=== PATIENT | female | born 1965 | race Caucasian/White ===

== ENCOUNTER 2018-04-06 11:09 | Inpatient (IN) | payer BC, SELFPAY ==
[~2018-04-06 11:09] MED LIST: ISOVUE-370 76%-LOCM 1 ML ONE
[2018-04-06 12:03] LABS: Bilirubin Negative (Negative); Blood, Urine Negative (Negative); Clarity CLEAR (Clear); Glucose, Urine (Dipstick) Negative (Negative); Leukocyte Negative (Negative); Nitrite Negative (Negative); Protein, Urine (Dipstick) Negative (Neg-Trace); Specific Gravity, Urine 1.008 (1.002-1.036); Urobilinogen 0.2 mg/dL (0.2-1.0)
[2018-04-06 12:25] LABS: ALT (SGPT) 20 U/L (8-55); AST (SGOT) 47 U/L (5-34); Alkaline Phosphatase 84 U/L (40-150); Anion Gap 18 mmol/L (10-20); BUN (Urea Nitrogen) 12 mg/dL (9.8-20.1); Bilirubin, Total 1.2 mg/dL (0.2-1.2); Calc. Creatinine Clearance 0 mL/min (70-130); Calcium 9.7 mg/dL (7.8-10.44); Carbon Dioxide 21 mmol/L (22-29); Chloride 100 mmol/L (98-107); Estimated GFR-MDRD 89; Globulin 3.9 g/dL (2.4-3.5); Glucose 87 mg/dL (70-105); Potassium 4.2 mmol/L (3.5-5.1); Protein, Total 7.9 g/dL (6.0-8.3); Sodium 135 mmol/L (136-145)
[2018-04-06 13:07] LABS: Hemoglobin 12.9 g/dL (12.0-16.0); Mean Corpuscular HGB CONC 34.1 g/dL (32.0-36.0); Mean Corpuscular Hemoglobin 28.7 pg (27.0-31.0); Mean Corpuscular Volume 84.3 fL (78.0-98.0); Mean Platelet Volume 6.2 fL (7.4-10.4); Platelet Count 209 thou/uL (130-400); White Blood Cell (WBC) Count 8.7 thou/uL (4.8-10.8)
[2018-04-06 13:08] LABS: Band 36 % (5-11); Lymphocytes 12 % (21-51); MDiff Complete? YES; Metamyelocyte 5 % (0-0); Neutrophil 47 % (42-75); Platelet Morphology Comment Appears Adequate; RBC Morphology Normal
[2018-04-06] MEDS ORDERED: Ketorolac Tromethamine 30 MG/ML VIAL ONE (13:31)
[2018-04-06] MEDS ORDERED: Ondansetron PF 4 MG/2 ML Vial ONE (13:31)
[2018-04-06] MEDS ORDERED: Piperacillin/Tazobactam 4.5 GM VIAL ONE (13:31)
[2018-04-06] MEDS ORDERED: metroNIDAZOLE 500 MG/100 ML BAG ONE (13:33)
--- NOTE | 2018-04-06 13:37 | RAD ---
RADIOGRAPH CHEST 1 VIEW: HISTORY: A 53-year-old female with sepsis. FINDINGS: There are no air space densities, pulmonary edema, pneumothorax, or cardiomegaly. The lateral costop hrenic angles are sharp. The right hemidiaphragm is elevated, unchanged compared to chest CT of 06/14. IMPRESSION: 1. No acute cardiopulmonary findings. 2. Chronically elevated right hemidiaphragm. lisbeth [] POS: JANET
--- NOTE | 2018-04-06 13:41 | CT ---
CT ABDOMEN WITH CONTRAST CT PELVIS WITH CONTRAST: DATE: 04/06/2018 TIME: 12:30 p.m. HISTORY: A 53-year-old female with right-sided abdominal pain. COMPARISON: Noncontrast CT of 07/07/2010. TECHNIQUE: IV injection of iodinated contrast media: Isovue. Oral contrast media: Administered. FINDINGS: There are multiple mildly enlarged mesenteric lymph nodes scattered throughout the abdominal cavity. Again noted is the very large number of diverticula throughout the ascending, transverse, descending , and sigmoid colon. Previously, there was severe focal thickening of a segment of sigmoid colon, wi th surrounding severe edema, representing severe acute diverticulitis. Currently, in the same region, there is mild focal mural thickening and mild surrounding fat strandin g, representing mild edema. This includes a small, approximately 1.5 cm region of slightly low atten uation in the wall of the proximal sigmoid colon. There is no pericolonic abscess. The appendix, abdominal aorta, bilateral kidneys, adrenals, pancreas, liver, and spleen are normal. No pericholecystic edema. No small bowel dilation. No pneumoperitoneum or ascites. The lung bases are grossly clear. Chronically elevated right hemidiaphragm is again noted. The urinary bladder is nearly empty. IMPRESSION: 1. Evidence for sigmoid colonic diverticulitis in the left lower quadrant. 2. In general, in such cases, colonoscopy is recommended after resolution of the acute phase, to rul e out the possibility of a concomitant colon cancer. 3. Pancolonic diverticulosis. 4. Chronically elevated right hemidiaphragm. 5. Normal appendix. VASYL Van POS: JANET
[2018-04-06 16:38] LABS: Lactic Acid 1.5 mmol/L (0.5-2.2)
[2018-04-06] MEDS ORDERED: HYDROcodone/Acetaminophen 5/325 mg Tablet PO PRN (16:53)
[2018-04-06] MEDS ORDERED: Morphine 2 MG/ML SYRINGE SLOW IVP PRN (16:53)
[2018-04-06] MEDS ORDERED: cefOXitin Sodium 1 GM in Sodium Chloride 0.9% 100 ML IVPB SCH (18:00)
[2018-04-06 18:02] VITALS: BMI 39.0
[2018-04-06] MEDS: cefOXitin Sodium/Dextrose,Iso 1 GM in Premix Bag 50 BAG IVPB SCH ×2 (18:38→22:33)
[2018-04-06] MEDS: Famotidine 20 MG TAB PO SCH (20:36)
[2018-04-06] MEDS: metroNIDAZOLE 500 MG in Premix Bag 1 BAG IVPB SCH (22:33)
--- NOTE | 2018-04-06 22:36 | CON ---
DATE OF CONSULTATION: 04/06/2018 CHIEF COMPLAINT: Abdominal pain. HISTORY OF PRESENT ILLNESS: Ms. Jeff is a 53-year-old woman who 5 days ago started having some mild cramping lower abdominal pain. This pain has been continuous and gradually worsened over the last several days such that it became severe this morning and was associated with nausea and vomiting. She came in to the emergency room and had a CT scan performed that showed evidence of diverticulitis around the sigmoid colon. She was febrile to 102. She has had no diarrhea with this. She has had some intermittent occasional constipation, but her last bowel movement was a small amount this morning. She has had no blood in the stool. She did have diverticulitis back in 2010 that was treated with antibiotics. She has had no repeat episodes of diverticulitis requiring antibiotics since that time. She has had an occasional episode of lower abdominal cramping that usually goes away with a liquid diet. PAST MEDICAL HISTORY: Thyroid cancer status post thyroidectomy. PAST SURGICAL HISTORY: Thyroidectomy and tubal ligation. FAMILY HISTORY: She had an uncle with colon cancer, diagnosed age 55. She had 2 sisters with thymus cancer. SOCIAL HISTORY: No alcohol, tobacco, or drugs. ALLERGIES: NO KNOWN DRUG ALLERGIES. MEDICATIONS: 1. Prior to admission, Levothyroxine. 2. Hydrochlorothiazide. 3. Estrogen. REVIEW OF SYSTEMS: Negative x10 systems reviewed except as stated in history of present illness. PHYSICAL EXAMINATION: GENERAL: She is in no acute distress. She is alert and oriented x3. HEENT: Her eyes have no scleral icterus. Oropharynx is clear without lesions. No cervical or supraclavicular lymphadenopathy. LUNGS: Clear to auscultation bilaterally. HEART: Regular rate and rhythm without murmur. ABDOMEN: Diffusely tender, but more so in the left lower quadrant. She has slight guarding in the left lower quadrant. Her bowel sounds are present. EXTREMITIES: No lower extremity edema. NEUROLOGIC: Cranial nerves are grossly intact. LABORATORY DATA: White blood cell count 8.7, hemoglobin 12.9, platelets 209, creatinine 0.96, bilirubin 1.2, AST 47, ALT 20, alkaline phosphatase 84, albumin 4.0. CT scan of the abdomen and pelvis shows mild focal mural thickening and surrounding fat stranding in the sigmoid colon at the same segment that she had prior diverticulitis attack by CT back in 2010. IMPRESSION: Recurrent diverticulitis. This is her first recurrence since 2010. She has never had a colonoscopy. No evidence of complications or perforation with this now. However, she does has have nausea and vomiting and would not tolerate oral antibiotics at this point. RECOMMENDATIONS: 1. IV antibiotics. 2. Complete 10-day course of the antibiotics and then she can follow up in GI clinic for colonoscopy in 6 weeks. Job ID: [id number]
[2018-04-07] MEDS: Acetaminophen 325 MG TAB PO PRN ×3 (02:16→15:27)
[2018-04-07] MEDS: Ondansetron ODT 4 MG TAB PO PRN ×2 (02:16→17:56)
[2018-04-07 04:44] LABS: #Lymphocytes 0.5 thou/uL (1.20-3.40); #Monocytes 0.4 thou/uL (0.11-0.59); #Neutrophils 11.1 thou/uL (1.40-6.50); %Basophils 0.3 % (0.0-1.0); %Eosinophils 0.1 % (0.0-10.0); %Lymphocytes 3.9 % (21.0-51.0); %Monocytes 2.9 % (0.0-10.0); %Neutrophils 92.8 % (42.0-75.0); Hemoglobin 11.7 g/dL (12.0-16.0); Mean Corpuscular HGB CONC 33.3 g/dL (32.0-36.0); Mean Corpuscular Hemoglobin 28.2 pg (27.0-31.0); Mean Corpuscular Volume 84.6 fL (78.0-98.0); Mean Platelet Volume 6.1 fL (7.4-10.4); Platelet Count 168 thou/uL (130-400); RBC Distribution Width 12.3 % (11.5-14.5); Red Blood Cell (RBC) Count 4.17 mill/uL (4.20-5.40); White Blood Cell (WBC) Count 11.9 thou/uL (4.8-10.8)
[2018-04-07 05:04] LABS: Anion Gap 13 mmol/L (10-20); BUN (Urea Nitrogen) 14 mg/dL (9.8-20.1); Calc. Creatinine Clearance 170 mL/min (70-130); Calcium 8.6 mg/dL (7.8-10.44); Carbon Dioxide 25 mmol/L (22-29); Chloride 101 mmol/L (98-107); Estimated GFR-MDRD 89; Glucose 110 mg/dL (70-105); Potassium 3.1 mmol/L (3.5-5.1); Sodium 136 mmol/L (136-145)
[2018-04-07] MEDS: metroNIDAZOLE 500 MG in Premix Bag 1 BAG IVPB SCH ×3 (05:07→21:45)
[2018-04-07] MEDS: cefOXitin Sodium/Dextrose,Iso 1 GM in Premix Bag 50 BAG IVPB SCH (06:06)
[2018-04-07] MEDS: Famotidine 20 MG TAB PO SCH ×2 (10:15→22:48)
--- NOTE | 2018-04-07 10:50 | PDOC.PN ---
- Subjective Encounter Start Date: 04/07/18 Encounter Start Time: 10:15 Subjective: abd pain is slightly better -: its in the lower quadrants, mostly LLq -: no nausea, at bedside - Objective Resuscitation Status - Order Detail: 04/06/18 16:54 Resuscitation Status Routine Resuscitation Status: FULL: Full Resuscitation Discussed with: Patient MAR Reviewed: Yes Vital Signs & Weight: Vital Signs (12 hours) Temp Pulse Resp BP Pulse Ox 04/07/18 09:00 98.5 F 83 18 117/68 92 L 04/07/18 08:00 92 L Weight Admit Weight 249 lb 5 oz Weight 249 lb 5 oz Result Diagrams: 04/07/18 04:12 04/07/18 04:12 Phys Exam - Physical Examination HEENT: moist MMs, sclera anicteric Neck: no JVD, supple Respiratory: no wheezing, no rales Cardiovascular: RRR, no significant murmur Gastrointestinal: soft, no distention, positive bowel sounds tenderness LLQ+, no rigidity or guarding Musculoskeletal: no edema, pulses present Neurological: non-focal, moves all 4 limbs Psychiatric: normal affect, A&O x 3 Dx/Plan (1) Acute diverticulitis Code(s): K57.92 - DVTRCLI OF INTEST, PART UNSP, W/O PERF OR ABSCESS W/O BLEED Status: Acute Comment: initial episode in 2010, sigmoid diverticulitis (2) Obesity (BMI 30-39.9) Code(s): E66.9 - OBESITY, UNSPECIFIED Status: Chronic (3) Hypothyroidism Code(s): E03.9 - HYPOTHYROIDISM, UNSPECIFIED Status: Chronic Qualifiers: Hypothyroidism type: acquired Qualified Code(s): E03.9 - Hypothyroidism, unspecified (4) HTN (hypertension) Code(s): I10 - ESSENTIAL (PRIMARY) HYPERTENSION Status: Chronic Qualifiers: Hypertension type: essential hypertension Qualified Code(s): I10 - Essential (primary) hypertension - Plan will start liq diet from today -: is on cefoxitin and flagyl -: tmax of 99, abd pain is slowly getting better -: to amb in hallway as tolerated -: continue levothyroixin as before, morphine prn * . Review of Systems - Medications/Allergies Allergies/Adverse Reactions: Allergies Allergy/AdvReac Type Severity Reaction Status Date / Time No Known Drug Allergies Allergy Verified 04/06/18 17:59 Medications: Current Medications Acetaminophen (Tylenol) 650 mg PO Q4H PRN PRN Reason: Headache/Fever/Mild Pain (1-3) Last Admin: 04/07/18 10:15 Dose: 650 mg Hydrocodone Bitart/Acetaminophen ([place] 5/325) 1 tab PO Q4H PRN PRN Reason: Moderate Pain (4-6) Last Admin: 04/06/18 20:37 Dose: 1 tab Enoxaparin Sodium (Lovenox) 40 mg SC 0900 [facility] Famotidine (Pepcid) 20 mg PO BID [facility] Last Admin: 04/07/18 10:15 Dose: 20 mg Metronidazole 500 mg/ Device 100 mls @ 100 mls/hr IVPB Q8HR [facility] Last Admin: 04/07/18 05:07 Dose: 100 mls Cefoxitin Sodium/Dextrose 1 gm (/ Device) 50 mls @ 100 mls/hr IVPB Q6HR [facility] Last Admin: 04/07/18 06:06 Dose: 50 mls Morphine Sulfate (Morphine) 2 mg SLOW IVP Q4H PRN PRN Reason: Moderate to Severe Pain (6-10) Ondansetron HCl (Zofran Odt) 4 mg PO Q6H PRN PRN Reason: Nausea/Vomiting Last Admin: 04/07/18 02:16 Dose: 4 mg
[2018-04-07] MEDS: Enoxaparin Sodium 40 MG/0.4 ML SYRINGE SC SCH (12:29)
[2018-04-07] MEDS: Cefepime 1 GM in Sodium Chloride 0.9% 100 ML IVPB SCH ×2 (12:29→22:52)
--- NOTE | 2018-04-07 16:30 | HP ---
CHIEF COMPLAINT: Abdominal pain. HISTORY OF PRESENT ILLNESS: This patient is a 53-year-old female, who had a history of diverticulitis in 2010. The patient had confirmation of that on CT scan. She subsequently improved after simply ER visits. She reports that since that time she has had a couple of flares that were similar, but were fairly mild. She put herself on a clear liquid diet and it resolved spontaneously. She reports that she simply does not go to doctors or generally take care of herself because she is busy taking care of others. The patient developed some pain on , 4 days prior to admission. She had pain in the lower abdomen associated with eating initially. She had associated nausea and vomiting and was unable to keep anything significant down. On the day of admission, the patient tried to eat a couple of bites of pancakes and had severe lower abdominal pain, which she describes as someone standing on her guts. She had a small bowel movement, which only helped very slightly. She is unaware of having any fever at home. She has not had any diarrhea associated with this. REVIEW OF SYSTEMS: The patient has noted some mild urinary incontinence today, which is new for her. She also reports that she is generally weak. Otherwise, all systems were reviewed and all pertinent positives and negatives noted in the HPI. PAST MEDICAL HISTORY: Notable for hypothyroidism that she states was a thyroid cancer. She also has what she describes as a benign thymus lesion noted on CT scan previously. PAST SURGICAL HISTORY: Thyroidectomy and bilateral tubal ligation. SOCIAL HISTORY: The patient is . She has three children. She is also raising a grandchild. She has no history of alcohol or tobacco abuse. No drug use. She is a full code, and her would be her surrogate decision maker. FAMILY HISTORY: The patient has 2 sisters who she says of thymus cancer. Her father at 50 of an NE. Her mother is alive and generally well. ALLERGIES: NONE. MEDICATIONS: Levothyroxine 150 mcg p.o. daily. PHYSICAL EXAMINATION: VITAL SIGNS: Temperature 99.1, pulse 95, respirations 18, O2 saturation 93% on room air, and BP 107/69. GENERAL APPEARANCE: Age-appropriate female. She is in no distress. She is awake, alert, oriented, pleasant, and cooperative. HEENT: PERRL. No acute lesions. NECK: Supple and symmetric. No lymphadenopathy, JVD, or carotid bruits. HEART: Regular rate and rhythm without murmurs, gallops, or rubs. LUNGS: Clear to auscultation bilaterally with good chest wall expansion and air exchange. ABDOMEN: Soft and nondistended. She is exquisitely tender in the pelvis and lower abdomen with some voluntary guarding, but no rebound. EXTREMITIES: Warm and dry with no cyanosis, clubbing, or edema. NEUROLOGIC: The patient is intact and moves all extremities spontaneously. LABORATORY DATA: White count 8.7, hemoglobin 12.9, and platelets 209. She has 36% bands. Sodium 135, potassium 4.2, chloride 101, CO2 is 21, BUN 12, creatinine 0.69, lactic acid 3.1, AST is 47, ALT 20, troponin less than 0.01. Albumin is 4.0. Urinalysis negative. Flu screen negative. IMAGING STUDIES: Chest x-ray negative. CT abdomen reveals left sided diverticulitis, pancolonic diverticulosis, chronically elevated right hemidiaphragm. IMPRESSION AND PLAN: 1. Diverticulitis in a patient with pancolonic diverticulosis. This is at least the patient's second bout of diverticulitis. She is having some nausea and therefore needs to be admitted for IV antibiotic therapy at least until this is improving and she can take some p.o. She will likely need to follow up with colonoscopy at some point, especially given her history of thyroid cancer and her sisters history of thymus cancer. The patient will be seen by GI as well. 2. Nausea and vomiting, necessitates the patient being in hospital for IV antibiotics and we will treat symptomatically. 3. Hypothyroidism. Continue with her usual thyroid medication. Job ID: [id number] [facility]
--- NOTE | 2018-04-07 16:49 | PRG ---
DATE OF SERVICE: 04/07/2018 SUBJECTIVE: Ms. Jeff feels much better today. Her pain is improved. She has just taken in some water and ice chips, but did not feel up to and taking other fluids today. OBJECTIVE: VITAL SIGNS: Temperature is 97.7, pulse 73, and blood pressure 120/69. GENERAL: She is in no acute distress. Alert and oriented x3. LUNGS: Clear to auscultation bilaterally. HEART: Regular rate and rhythm without murmur. ABDOMEN: Soft. She has still tenderness in the lower abdomen, but her tenderness is markedly improved. Bowel sounds are present. EXTREMITIES: No lower extremity edema. LABORATORY DATA: Her white blood cell count did increase from 8.7 to 11.9 today. Creatinine 0.69. IMPRESSION: Acute diverticulitis. She grew Pseudomonas in two of her blood culture bottles. Sensitivities are pending. She is currently on cefepime and metronidazole. There are no signs of perforation or abscess by the contrast enhanced CT at the time of admission. RECOMMENDATIONS: 1. Continue antibiotics. 2. Colonoscopy should be performed in six weeks after resolution of the acute diverticulitis. She had never had a prior colonoscopy. Job ID: [id number]
[2018-04-08] MEDS: metroNIDAZOLE 500 MG in Premix Bag 1 BAG IVPB SCH ×3 (06:14→21:02)
[2018-04-08] MEDS: Famotidine 20 MG TAB PO SCH ×2 (08:46→21:00)
[2018-04-08] MEDS: Levothyroxine 150 MCG TAB PO SCH (08:46)
[2018-04-08] MEDS: Enoxaparin Sodium 40 MG/0.4 ML SYRINGE SC SCH (08:47)
[2018-04-08] MEDS: Acetaminophen 325 MG TAB PO PRN (08:48)
--- NOTE | 2018-04-08 11:38 | PDOC.PN ---
- Subjective Encounter Start Date: 04/08/18 Encounter Start Time: 09:15 Subjective: abd pain is better, no nausea -: is tolerating liq diet -: had bm yesterday, is amb in room - Objective Resuscitation Status - Order Detail: 04/06/18 16:54 Resuscitation Status Routine Resuscitation Status: FULL: Full Resuscitation Discussed with: Dale MCPHERSON Reviewed: Yes Vital Signs & Weight: Vital Signs (12 hours) Temp Pulse Resp BP Pulse Ox 04/08/18 08:00 98.2 F 74 16 145/82 H 97 04/08/18 04:00 98.3 F 04/07/18 23:49 98.1 F Weight Admit Weight 249 lb 5 oz Weight 249 lb 5 oz I&O: 04/07/18 04/08/18 04/09/18 06:59 06:59 06:59 Intake Total 800 Balance 800 Result Diagrams: 04/07/18 04:12 04/07/18 04:12 Phys Exam - Physical Examination HEENT: PERRLA, moist MMs Neck: no JVD, supple Respiratory: no wheezing, no rales Cardiovascular: RRR, no significant murmur Gastrointestinal: soft, no distention, positive bowel sounds Musculoskeletal: no edema, pulses present Neurological: non-focal, moves all 4 limbs Psychiatric: normal affect, A&O x 3 Dx/Plan (1) Acute diverticulitis Code(s): K57.92 - DVTRCLI OF INTEST, PART UNSP, W/O PERF OR ABSCESS W/O BLEED Status: Acute Comment: initial episode in 2010, sigmoid diverticulitis (2) Obesity (BMI 30-39.9) Code(s): E66.9 - OBESITY, UNSPECIFIED Status: Chronic (3) Hypothyroidism Code(s): E03.9 - HYPOTHYROIDISM, UNSPECIFIED Status: Chronic Qualifiers: Hypothyroidism type: acquired Qualified Code(s): E03.9 - Hypothyroidism, unspecified (4) HTN (hypertension) Code(s): I10 - ESSENTIAL (PRIMARY) HYPERTENSION Status: Chronic Qualifiers: Hypertension type: essential hypertension Qualified Code(s): I10 - Essential (primary) hypertension (5) Sepsis Code(s): A41.9 - SEPSIS, UNSPECIFIED ORGANISM Status: Acute Qualifiers: Sepsis type: Pseudomonas Qualified Code(s): A41.52 - Sepsis due to Pseudomonas (6) Bacteremia Code(s): R78.81 - BACTEREMIA Status: Acute Comment: pseudomonas - Plan await final cultures -: is on cefepime and flagyl -: adv diet to heart healthy -: to amb in hallway -: likely dc plan in am if cultures are back * . Review of Systems - Medications/Allergies Allergies/Adverse Reactions: Allergies Allergy/AdvReac Type Severity Reaction Status Date / Time No Known Drug Allergies Allergy Verified 04/06/18 17:59 Medications: Current Medications Acetaminophen (Tylenol) 650 mg PO Q4H PRN PRN Reason: Headache/Fever/Mild Pain (1-3) Last Admin: 04/08/18 08:48 Dose: 650 mg Hydrocodone Bitart/Acetaminophen ([place] 5/325) 1 tab PO Q4H PRN PRN Reason: Moderate Pain (4-6) Last Admin: 04/06/18 20:37 Dose: 1 tab Enoxaparin Sodium (Lovenox) 40 mg SC 0900 [facility] Last Admin: 04/08/18 08:47 Dose: Not Given Famotidine (Pepcid) 20 mg PO BID [facility] Last Admin: 04/08/18 08:46 Dose: 20 mg Metronidazole 500 mg/ Device 100 mls @ 100 mls/hr IVPB Q8HR [facility] Last Admin: 04/08/18 06:14 Dose: 100 mls Cefepime HCl 1 gm/ Sodium (Chloride) 100 mls @ 200 mls/hr IVPB 1200,2359 [facility] Last Admin: 04/07/18 22:52 Dose: 100 mls Levothyroxine Sodium (Synthroid) 150 mcg PO DAILY [facility] Last Admin: 04/08/18 08:46 Dose: 150 mcg Morphine Sulfate (Morphine) 2 mg SLOW IVP Q4H PRN PRN Reason: Moderate to Severe Pain (6-10) Ondansetron HCl (Zofran Odt) 4 mg PO Q6H PRN PRN Reason: Nausea/Vomiting Last Admin: 04/07/18 17:56 Dose: 4 mg
[2018-04-08] MEDS: Cefepime 1 GM in Sodium Chloride 0.9% 100 ML IVPB SCH (12:47)
--- NOTE | 2018-04-08 23:29 | PRG ---
DATE OF SERVICE: 04/08/2018 SUBJECTIVE: Her abdominal pain is resolving. She is tolerating diet well. OBJECTIVE: VITAL SIGNS: Temperature 98.5, pulse 70, blood pressure 134/67. GENERAL: She is in no acute distress. She is alert and oriented x3. LUNGS: Clear to auscultation bilaterally. HEART: Regular rate and rhythm without murmur. ABDOMEN: Soft, nontender, nondistended. Bowel sounds are present. EXTREMITIES: No lower extremity edema. LABORATORY DATA: Her blood culture grew Pseudomonas. Sensitivities are pending. IMPRESSION: 1. Acute diverticulitis. She has responded well symptomatically to antibiotics. 2. Pseudomonas bacteremia. RECOMMENDATIONS: 1. Complete a course of antibiotics. Given the Pseudomonas bacteremia, we will defer to Internal Medicine or if necessary Infectious Disease to determine, which antibiotic is optimal and the duration of therapy. 2. She should follow up in GI clinic in 6 weeks for colonoscopy. 3. I will sign off for now. Please call if GI can be of assistance. Job ID: [id number]
[2018-04-09] MEDS: Cefepime 1 GM in Sodium Chloride 0.9% 100 ML IVPB SCH (00:25)
[2018-04-09] MEDS: metroNIDAZOLE 500 MG in Premix Bag 1 BAG IVPB SCH (05:38)
[2018-04-09 08:10] VITALS: BP 131/82; TEMP 97.7
[2018-04-09] MEDS: Famotidine 20 MG TAB PO SCH (09:55)
[2018-04-09] MEDS: Levothyroxine 150 MCG TAB PO SCH (09:55)
--- NOTE | 2018-04-09 13:56 | PDOC.PN ---
- Subjective Encounter Start Date: 04/09/18 Encounter Start Time: 11:00 Subjective: no abd pain, wants to go home -: is tolerating oral solid diet - Objective Resuscitation Status - Order Detail: 04/06/18 16:54 Resuscitation Status Routine Resuscitation Status: FULL: Full Resuscitation Discussed with: Patient [place] Reviewed: Yes Vital Signs & Weight: Vital Signs (12 hours) Temp Pulse Resp BP Pulse Ox 04/09/18 08:00 97.7 F 62 16 131/82 95 Weight Admit Weight 249 lb 5 oz Weight 249 lb 5 oz I&O: 04/08/18 04/09/18 04/10/18 06:59 06:59 06:59 Intake Total 800 1120 480 Balance 800 1120 480 Result Diagrams: 04/07/18 04:12 04/07/18 04:12 Phys Exam - Physical Examination HEENT: PERRLA, moist MMs Neck: no JVD, supple Respiratory: no wheezing, no rales Cardiovascular: RRR, no significant murmur Gastrointestinal: soft, non-tender, no distention, positive bowel sounds Musculoskeletal: no edema, pulses present Neurological: non-focal, moves all 4 limbs Psychiatric: normal affect, A&O x 3 Dx/Plan (1) Acute diverticulitis Code(s): K57.92 - DVTRCLI OF INTEST, PART UNSP, W/O PERF OR ABSCESS W/O BLEED Status: Acute Comment: initial episode in 2010, sigmoid diverticulitis (2) Obesity (BMI 30-39.9) Code(s): E66.9 - OBESITY, UNSPECIFIED Status: Chronic (3) Hypothyroidism Code(s): E03.9 - HYPOTHYROIDISM, UNSPECIFIED Status: Chronic Qualifiers: Hypothyroidism type: acquired Qualified Code(s): E03.9 - Hypothyroidism, unspecified (4) HTN (hypertension) Code(s): I10 - ESSENTIAL (PRIMARY) HYPERTENSION Status: Chronic Qualifiers: Hypertension type: essential hypertension Qualified Code(s): I10 - Essential (primary) hypertension (5) Sepsis Code(s): A41.9 - SEPSIS, UNSPECIFIED ORGANISM Status: Acute Qualifiers: Sepsis type: Pseudomonas Qualified Code(s): A41.52 - Sepsis due to Pseudomonas (6) Bacteremia Code(s): R78.81 - BACTEREMIA Status: Acute Comment: pseudomonas - Plan cultures are sensitive to quinolones (pseudomonas) -: dc pt home on levaquin and flagyl -: to f/u with as adv. * .
--- NOTE | 2018-04-10 20:48 | EKG ---
Test Reason : SEPSIS ALERT Blood Pressure : / mmHG Vent. Rate : 123 BPM Atrial Rate : 123 BPM P-R Int : 000 ms QRS Dur : 082 ms QT Int : 418 ms P-R-T Axes : 000 003 042 degrees QTc Int : 598 ms Sinus tachycardia with short MN No STEMI Abnormal ECG Confirmed by MARY RIOS D.O. ([id number]), supervising film or videotape editor JEANNIE PACHECO ([id number] on 04/10/2018 8:47:57 PM Referred By: Confirmed By:MARY RIOS D.O.
--- NOTE | 2018-04-11 16:06 | DIS ---
DATE OF ADMISSION: 04/06/2018 DATE OF DISCHARGE: 04/09/2018 DISCHARGE DISPOSITION: To home. PRIMARY DISCHARGE DIAGNOSIS: Acute sigmoid diverticulitis, second episode resolving, initial episode was in 2010. SECONDARY DISCHARGE DIAGNOSES: Sepsis, Pseudomonas bacteremia secondary to above, hypertension, and hypothyroidism. PROCEDURES DONE DURING HOSPITALIZATION: Chest x-ray done showed no acute cardiopulmonary abnormality. CT of the abdomen and pelvis done showed evidence of sigmoid colonic diverticulitis. Pancolonic diverticulosis was seen. Normal appendix was seen on the CAT scan. Urine culture was contaminated. Blood cultures grew Pseudomonas aeruginosa in one of two sets, which was sensitive to quinolones. The patient has had pseudoalcaligenes in one of two cultures. Influenza A and B antigens were negative. White count is 11.9, H and H 11 and 35, and platelet count 168 with 92% neutrophils. BUN 14, creatinine 0.6, lactic acid 3.1, and albumin is 4.0. INPATIENT CONSULT: Zhang Bland MD for Gastroenterology. DISCHARGE MEDICATIONS: 1. Levaquin 500 mg p.o. daily for another 10 days. 2. Flagyl 500 mg p.o. 3 times daily for 10 days. 3. Synthroid 150 mcg p.o. daily. 4. Hydrochlorothiazide 25 mg p.o. daily. ALLERGIES: NO KNOWN DRUG ALLERGIES. DISCHARGE PLAN: The patient to follow up with Dr. Zhang Bland, in 2 weeks. She also needs to follow up with her primary care physician in 1 week. BRIEF COURSE DURING HOSPITALIZATION: The patient initially came to ER on the with complaints of abdominal pain. She has had a CAT scan done which showed sigmoid diverticulitis. The patient was initially kept n.p.o. and has had slow weaning into liquid diet and solid food prior to discharge. The patient did not have any features of abscess or phlegmon on the CAT scan. She was evaluated by Dr. Zhang Bland. The patient has had prior episode of sigmoid diverticulitis in 2010. Her blood cultures incidentally grew Pseudomonas aeruginosa in one of two and Pseudomonas pseudoalcaligenes in the other set, both from the left upper extremity, one from left hand and the other one is from left arm. This is sensitive to Levaquin. The patient needs to continue Levaquin and Flagyl for a period of 10 days. Complete updates were given to the patient and her prior to discharge. She needs to follow up with Dr. Zhang Bland for colonoscopy in likely in 4 weeks. Please see a [id number] documentation for the day of discharge on [facility]. Job ID: [id number]
== END 2018-04-09 11:09 | disposition home or self-care (01) | DRG 872 ==
LOC: ERS 11:09 → ONC 17:23
PROVIDERS: ADMIT Internal Medicine; ATTEND Internal Medicine
DX: A41.52 Sepsis due to Pseudomonas (principal); K57.92 Diverticulitis of intestine, part unspecified, without perforation or abscess without bleeding; E03.9 Hypothyroidism, unspecified; E66.9 Obesity, unspecified; I10 Essential (primary) hypertension; Z85.850 Personal history of malignant neoplasm of thyroid; Z90.89 Acquired absence of other organs; Z98.51 Tubal ligation status; Z68.39 Body mass index [BMI] 39.0-39.9, adult
CPT/HCPCS: 36415; 71045; 74177; 80048; 80053; 81003; 83605; 84484; 85025; 87040; 87077; 87086; 87149; 87186; 87804; 93005; 96365; 96367; 96375; J0692; J0694; J0744; J1650; J1885; J2405; J2543; J7050; Q0162

== ENCOUNTER 2019-02-11 08:05 | Inpatient (IN) | payer SELFPAY ==
[2019-02-11 09:05] LABS: #Eosinphils 0.1 thou/uL (0.0-0.7); #Lymphocytes 1.5 thou/uL (1.20-3.40); #Monocytes 0.5 thou/uL (0.11-0.59); #Neutrophils 6.5 thou/uL (1.40-6.50); %Basophils 0.4 % (0.0-1.0); %Eosinophils 1.3 % (0.0-10.0); %Lymphocytes 17.4 % (21.0-51.0); %Monocytes 6.2 % (0.0-10.0); %Neutrophils 74.8 % (42.0-75.0); Hemoglobin 9.5 g/dL (12.0-16.0); Mean Corpuscular HGB CONC 33.6 g/dL (32.0-36.0); Mean Corpuscular Hemoglobin 28.6 pg (27.0-31.0); Mean Corpuscular Volume 85.1 fL (78.0-98.0); Mean Platelet Volume 6.3 fL (7.4-10.4); Platelet Count 257 thou/uL (130-400); RBC Distribution Width 11.4 % (11.5-14.5); Red Blood Cell (RBC) Count 3.34 mill/uL (4.20-5.40); White Blood Cell (WBC) Count 8.7 thou/uL (4.8-10.8)
[2019-02-11] MEDS ORDERED: Pantoprazole 40 MG VIAL ONE (09:09)
[2019-02-11] MEDS ORDERED: Ondansetron PF 4 MG/2 ML Vial ONE (09:09)
[2019-02-11 09:29] LABS: ALT (SGPT) 20 U/L (8-55); AST (SGOT) 11 U/L (5-34); Albumin 3.5 g/dL (3.5-5.0); Alkaline Phosphatase 64 U/L (40-110); Anion Gap 8 mmol/L (10-20); BUN (Urea Nitrogen) 11 mg/dL (9.8-20.1); Bilirubin, Total 0.5 mg/dL (0.2-1.2); Calc. Creatinine Clearance 0 mL/min (70-130); Calcium 8.4 mg/dL (7.8-10.44); Carbon Dioxide 31 mmol/L (22-29); Chloride 104 mmol/L (98-107); Estimated GFR-MDRD Greater than 90; Globulin 2.7 g/dL (2.4-3.5); Glucose 111 mg/dL (70-105); Potassium 3.8 mmol/L (3.5-5.1); Protein, Total 6.2 g/dL (6.0-8.3); Sodium 139 mmol/L (136-145)
[2019-02-11] MEDS ORDERED: Senokot S 8.6-50 MG TAB PO PRN (10:51)
[2019-02-11] MEDS ORDERED: HYDROcodone/Acetaminophen 5/325 mg Tablet PO PRN (10:51)
[2019-02-11] MEDS ORDERED: Ondansetron ODT 4 MG TAB PO PRN (10:51)
[2019-02-11] MEDS ORDERED: Ondansetron PF 4 MG/2 ML Vial IVP PRN (10:51)
[2019-02-11] MEDS ORDERED: HYDROcodone/Acetaminophen 7.5/325 mg Tablet PO PRN (10:51)
[2019-02-11] MEDS ORDERED: Acetaminophen 325 MG TAB PO PRN (10:51)
[2019-02-11] MEDS ORDERED: Labetalol HCl 100 MG/20 ML VIAL SLOW IVP PRN (10:58)
[2019-02-11] MEDS ORDERED: Melatonin 3 MG TAB PO PRN (10:58)
[2019-02-11] MEDS ORDERED: diphenhydrAMINE 25 MG CAP PO PRN (10:58)
[2019-02-11] MEDS ORDERED: Benzonatate 100 MG CAP PO PRN (10:58)
[2019-02-11] MEDS ORDERED: Docusate 100 MG CAP PO PRN (10:58)
--- NOTE | 2019-02-11 11:20 | CT ---
CT OF THE ABDOMEN AND PELVIS WITH IV CONTRAST INDICATION: History of bloody stools and abdominal pain COMPARISON: CT the abdomen and pelvis dated April 06, 2018. FINDINGS: ABDOMEN: Lung bases: Clear Liver: Fatty liver Gallbladder: Normal appearing. Pancreas: Normal. Adrenal glands: Normal. Spleen: Normal. Kidneys and ureters: Normal. No hydronephrosis. Vasculature: Normal. Lymph nodes:No lymphadenopathy. Free fluid in abdomen:No free fluid is evident. PELVIS: Small and large bowel: There is wall thickening with pericolonic inflammatory stranding involving the proximal sigmoid colon as well as the hepatic flexure. There are scattered colonic diverticula. Appendix:Normal Bladder: Normal. Rectal and perirectal soft tissues:Normal. Reproductive structures: Normal. Free fluid in pelvis: No free fluid is evident. Lymphadenopathy pelvis: No lymphadenopathy is evident. Osseous structures: There is stable wedge compression abnormalities of T9 and T8. There is scattered degenerative and osteoarthritic changes. Soft tissues:Normal. IMPRESSION: 1. Noncomplicated sigmoid and hepatic flexure colonic diverticulitis. 2. Fatty liver. 3. Chronic T9 and T8 wedge compression fractures.
[2019-02-11] MEDS ORDERED: metroNIDAZOLE 500 MG/100 ML BAG ONE (11:58)
[2019-02-11] MEDS ORDERED: Iopamidol 370 76% 50 ML VIAL FS ONE (12:07)
[2019-02-11] MEDS ORDERED: Iopamidol 370 76% 100 ML VIAL ONE (12:07)
[2019-02-11] MEDS: metroNIDAZOLE 500 MG in Premix Bag 1 BAG IVPB SCH ×2 (13:04→21:16)
[2019-02-11] MEDS: Sodium Chloride 0.9% 1,000 ML IV SCH (13:07)
[2019-02-11 13:48] VITALS: BMI 37.5
--- NOTE | 2019-02-11 14:14 | CON ---
DATE OF CONSULTATION: 02/11/2019 REASON FOR CONSULT: Diverticulitis and GI bleed. HISTORY OF PRESENT ILLNESS: Ms. Jeff is a 53-year-old female, who has previous history of diverticulitis back in March of this year. She was seeing Dr. Bland at that time and it was her first hospitalization. She had sigmoid colon diverticulitis. She did have a followup colonoscopy after that and she states she was done pretty well. About a week ago, she thought she had a recurrence of her symptoms, she was put on a liquid diet. She had some low-grade temperatures. She seemed to get better, but then on Thursday, 2 days ago, she started having severe cramping with diarrhea and some bleeding that was bright red in nature. On Thursday night, it happened once or twice and yesterday had 4 or 5 times and last night, she went to the bathroom and the next thing she remember she woke up on the floor with EMS there and she had apparently had a syncopal episode. Presently, she is feeling better. She has had a CAT scan in the emergency room that showed some diverticulitis again and in fact, the CAT scan report it was hepatic flexure and sigmoid colon diverticulitis. She denies any fever or chills. She states her pain is mainly in the left lower quadrant. She has had no dysuria, frequency, urgency and she feels a lot better since getting some fluids in the emergency room and starting antibiotics. PAST MEDICAL HISTORY: 1. Diverticulitis, first diagnosed in March 2018. 2. Recent colonoscopy earlier this year with no significant finding except for diverticular disease. 3. History of thyroid cancer, previous thyroidectomy. PAST SURGICAL HISTORY: Thyroidectomy and tubal ligation. FAMILY HISTORY: Uncle with colon cancer at age 55. Two sisters with thymus cancer. SOCIAL HISTORY: No alcohol, drugs, or tobacco. ALLERGIES: NONE KNOWN. MEDICATIONS: Medications at home; 1. Synthroid. 2. . 3. Lisinopril. Medications here, she is on; 1. Levothyroxine 150 mcg daily. 2. Levofloxacin 750 mg daily. 3. Metronidazole q.8 hours. 4. Protonix q.12 hours IV. No IV fluids and she is n.p.o. PHYSICAL EXAMINATION: VITAL SIGNS: Temperature is 97.5, pulse 62, and blood pressure 131/82. GENERAL: She is resting comfortably in bed. HEENT: Her oropharynx is moist. Conjunctivae and sclerae are clear. Mucous membranes are pink. LUNGS: Clear. HEART: Regular rate and rhythm without clicks or murmurs. ABDOMEN: Mildly tender in left lower quadrant with no rebound or guarding. There is no palpable hepatosplenomegaly. There are no hernias. EXTREMITIES: No clubbing, cyanosis, or edema. RECTAL: Deferred. LABORATORY DATA: Hemoglobin is 9.5, it was 11.7 in March 2018; white count is 8.7; and platelet count is 257. Sodium 139, potassium 3.8, BUN and creatinine are 11 and 0.6. Liver function tests are normal. ASSESSMENT: 1. This is a 53-year-old female, who has had a prior history of diverticulitis in March of 2018, who felt she had a relapse of her symptoms last week, which she managed with going to a liquid diet. Ultimately though, the pain got worse again on Thursday and then she passed. She started having tenesmus with bloody stools. She finally came in yesterday. She has no white count and no fever. Has a CAT scan suggestive of thickening in the hepatic flexure of the colon and also in the sigmoid colon. She has been labeled as having diverticulitis. She has been made n.p.o. and she has been placed on no fluids here on the floor. I suspect this is probably more likely ischemic colitis based on the changes in 2 areas of the colon, hepatic flexure, and sigmoid colon, although it could be diverticulitis. 2. Anemia with no signs of overt hemorrhage at this time. RECOMMENDATIONS: I would start her on some IV fluids and put her on clear liquids and continue the antibiotics and observe her. Job ID: [id number]
--- NOTE | 2019-02-11 17:32 | PDOC.HHP ---
Hospitalist HPI - History of Present Illness GI bleeding and abdominal pain History of Present Illness: 53-year-old the female with past medical history of thyroid cancer status post thyroidectomy, hypertension, and diverticulitis flair in the past presents with G.I. bleeding and abdominal cramping. I find the patient on the medical/ surgical unit and she is resting in bed comfortably. Patient breathing well on room air. Patient with her at bedside her primary historian. Patient tells me that over the past several days she has had bright red blood in her stool. Patient has had several episodes of diarrhea all through the night last night and though the past several days. Patient spent most of the night on the commode and this morning at roughly 5 in the morning while she was on the commode straining and bearing down she did suffer a episode where she momentarily passed out. Patient did not have any abrasion or trauma to her body. Patient states that she is not having any headache or pain in the limbs. Patient does not have any tender spots on whole body palpation of the long bones and bony areas. Patient had CT scan of the abdomen that demonstrates acute diverticulitis. Gastroenterology consultation requested for further recommendations. Hospitalist ROS - Review of Systems All other systems reviewed; all pertinent +/- noted in HPI/Subj - Medication Medications: Active Medications Generic Name Dose Route Start Last Admin Trade Name Freq PRN Reason Stop Dose Admin Metronidazole 500 mg/ Device 100 mls @ 100 mls/hr 02/11/19 14:00 02/11/19 13: 04 IVPB Not Given Q8HR LILI Levofloxacin 750 mg/ Device 150 mls @ 100 mls/hr 02/11/19 12:00 02/11/19 13: 07 IVPB 150 mls 1200 LILI Administration Sodium Chloride 1,000 mls @ 100 mls/hr 02/11/19 13:00 02/11/19 13:07 Normal Saline 0.9% IV 1,000 mls .Q10H LILI Administration Hospitalist History - Past Medical History Source: patient, family Cardiac: reports: HTN Pulmonary: reports: no pertinent history [employer]IV[employer]: reports: no pertinent history Gastrointestinal: reports: Diverticulosis, GI bleed Heme/Onc: reports: no pertinent history Hepatobiliary: reports: no pertinent history Psych: reports: no pertinent history Musculoskeletal: reports: no pertinent history Rheumatologic: reports: no pertinent history Infectious Disease: reports: no pertinent history ENT: reports: no pertinent history Renal/: reports: no pertinent history Endocrine: reports: Hypothyroidism, Other (Thyroid CA s/p thyroidectomy) - Past Surgical History Past Surgical History: reports: Tubal Ligation, Other (Thyroidectomy) - Family History Family History: reports: hypertension - Social History Smoking Status: Never smoker Alcohol: reports: None Drugs: reports: none Living Situation: With Family Domestic Violence: Negative Activity level: independent ambulation - Exam General Appearance: NAD, awake alert Eye: PERRL, anicteric sclera ENT: normocephalic atraumatic, no oropharyngeal lesions, moist mucosa Neck: supple, symmetric, no JVD, no lymphadenopathy Heart: RRR, no murmur, no gallops, no rubs, normal peripheral pulses Respiratory: CTAB, no wheezes, no rales, no ronchi Gastrointestinal: soft, non-distended, no guarding, no rigidity, tender to palpation (Mild left lower quadrant). negative: non-tender Extremities: no edema Skin: no lesions, no rashes Neurological: cranial nerve grossly intact, normal sensation to touch, no weakness, no focal deficits Musculoskeletal: normal tone, normal strength, no muscle wasting Psychiatric: normal affect, normal behavior, A&O x 3 Hospitalist Results - Labs Result Diagrams: 02/11/19 08:46 02/11/19 08:46 Lab results: WBC 8.7 thou/uL (4.8-10.8) 02/11/19 08:46 Hgb 9.5 g/dL (12.0-16.0) L 02/11/19 08:46 Hct 28.4 % (36.0-47.0) L 02/11/19 08:46 MCV 85.1 fL (78.0-98.0) 02/11/19 08:46 Plt Count 257 thou/uL (130-400) 02/11/19 08:46 Neutrophils % 74.8 % (42.0-75.0) 02/11/19 08:46 Sodium 139 mmol/L (136-145) 02/11/19 08:46 Potassium 3.8 mmol/L (3.5-5.1) 02/11/19 08:46 Chloride 104 mmol/L (98-107) 02/11/19 08:46 Carbon Dioxide 31 mmol/L (22-29) H 02/11/19 08:46 BUN 11 mg/dL (9.8-20.1) 02/11/19 08:46 Creatinine 0.60 mg/dL (0.6-1.1) 02/11/19 08:46 Glucose 111 mg/dL (70-105) H 02/11/19 08:46 Calcium 8.4 mg/dL (7.8-10.44) 02/11/19 08:46 Total Bilirubin 0.5 mg/dL (0.2-1.2) 02/11/19 08:46 AST 11 U/L (5-34) 02/11/19 08:46 ALT 20 U/L (8-55) 02/11/19 08:46 Alkaline Phosphatase 64 U/L (40-110) 02/11/19 08:46 Serum Total Protein 6.2 g/dL (6.0-8.3) 02/11/19 08:46 Albumin 3.5 g/dL (3.5-5.0) 02/11/19 08:46 - Radiology Interpretation CT scan - abdomen Status: image reviewed by nh Hospitalist H&P A/P - Problem (1) Abdominal pain Code(s): R10.9 - UNSPECIFIED ABDOMINAL PAIN Status: Acute (2) GI bleeding Code(s): K92.2 - GASTROINTESTINAL HEMORRHAGE, UNSPECIFIED Status: Acute (3) Anemia Code(s): D64.9 - ANEMIA, UNSPECIFIED Status: Acute (4) Acute diverticulitis Code(s): K57.92 - DVTRCLI OF INTEST, PART UNSP, W/O PERF OR ABSCESS W/O BLEED Status: Acute (5) Diverticulitis Code(s): K57.92 - DVTRCLI OF INTEST, PART UNSP, W/O PERF OR ABSCESS W/O BLEED Status: Acute (6) HTN (hypertension) Code(s): I10 - ESSENTIAL (PRIMARY) HYPERTENSION Status: Chronic Qualifiers: Hypertension type: essential hypertension Qualified Code(s): I10 - Essential (primary) hypertension (7) Hypothyroidism Code(s): E03.9 - HYPOTHYROIDISM, UNSPECIFIED Status: Chronic Qualifiers: Hypothyroidism type: acquired Qualified Code(s): E03.9 - Hypothyroidism, unspecified (8) Obesity (BMI 30-39.9) Code(s): E66.9 - OBESITY, UNSPECIFIED Status: Chronic - Plan Plan: Plan: admit to medical/surgical unit gastroenterology consultation, recommendations appreciated G.I. specific antibiotics IV IV fluids PPI therapy hold antiplatelet, anticoagulation, nonsteroidal anti-inflammatories drugs in the setting of acute G.I. bleeding CT scan of the abdomen with acute diverticulitis without signs of focal perforation or abscess symptomatic therapy for abdominal pain continue home medications is able blood pressure control blood sugar control DVT prophylaxis - SCDs
[2019-02-11] MEDS: Pantoprazole 40 MG VIAL IVP SCH (21:16)
[2019-02-12] MEDS: Sodium Chloride 0.9% 1,000 ML IV SCH ×4 (00:36→20:28)
[2019-02-12] MEDS: metroNIDAZOLE 500 MG in Premix Bag 1 BAG IVPB SCH ×3 (05:06→21:19)
[2019-02-12] MEDS: Levothyroxine 150 MCG TAB PO SCH (05:08)
[2019-02-12 06:48] LABS: #Eosinphils 0.1 thou/uL (0.0-0.7); #Lymphocytes 2.2 thou/uL (1.20-3.40); #Monocytes 0.4 thou/uL (0.11-0.59); #Neutrophils 4.4 thou/uL (1.40-6.50); %Basophils 0.5 % (0.0-1.0); %Eosinophils 1.6 % (0.0-10.0); %Lymphocytes 30.7 % (21.0-51.0); %Monocytes 5.7 % (0.0-10.0); %Neutrophils 61.6 % (42.0-75.0); Hemoglobin 8.3 g/dL (12.0-16.0); Mean Corpuscular HGB CONC 33.8 g/dL (32.0-36.0); Mean Corpuscular Volume 85.8 fL (78.0-98.0); Mean Platelet Volume 5.8 fL (7.4-10.4); Platelet Count 252 thou/uL (130-400); RBC Distribution Width 11.4 % (11.5-14.5); Red Blood Cell (RBC) Count 2.84 mill/uL (4.20-5.40); White Blood Cell (WBC) Count 7.2 thou/uL (4.8-10.8)
[2019-02-12 07:05] LABS: Anion Gap 9 mmol/L (10-20); BUN (Urea Nitrogen) 6 mg/dL (9.8-20.1); Calc. Creatinine Clearance 198 mL/min (70-130); Calcium 8.1 mg/dL (7.8-10.44); Carbon Dioxide 29 mmol/L (22-29); Chloride 107 mmol/L (98-107); Estimated GFR-MDRD Greater than 90; Glucose 98 mg/dL (70-105); Potassium 3.6 mmol/L (3.5-5.1); Sodium 141 mmol/L (136-145)
[2019-02-12] MEDS: Hydrochlorothiazide 25 MG TAB PO SCH (08:50)
--- NOTE | 2019-02-12 10:51 | PDOC.HOSPP ---
- Subjective Subjective: Seen and examined. Patient states that she has not moved her bowels sense arrival to the hospital. No further syncopal episodes. Blood counts have down trended with hemodialysis and from IV fluids. No nausea or vomiting. Crampy abdominal pain is improved. All questions answered in detail. - Objective Vital Signs & Weight: Vital Signs (12 hours) Temp Pulse Resp BP BP Pulse Ox 02/12/19 08:00 97.9 F 69 20 124/84 95 02/12/19 07:19 94 L 02/12/19 03:51 98.4 F 88 18 104/71 94 L 02/12/19 00:00 97.8 F 81 18 111/74 94 L Weight Weight 239 lb 6.56 oz I&O: 02/11/19 02/12/19 02/13/19 06:59 06:59 06:59 Intake Total 2250 Balance 2250 Result Diagrams: 02/12/19 06:34 02/12/19 06:34 Radiology Reviewed by me: Yes Hospitalist ROS - Review of Systems All other systems reviewed; all pertinent +/- noted in HPI/Subj - Medication Medications: Active Medications Generic Name Dose Route Start Last Admin Trade Name Freq PRN Reason Stop Dose Admin Hydrochlorothiazide 25 mg 02/12/19 09:00 02/12/19 08:50 Hydrochlorothiazide PO Not Given DAILY LILI Metronidazole 500 mg/ Device 100 mls @ 100 mls/hr 02/11/19 14:00 02/12/19 05: 06 IVPB 100 mls Q8HR LILI Administration Levofloxacin 750 mg/ Device 150 mls @ 100 mls/hr 02/11/19 12:00 02/11/19 13: 07 IVPB 150 mls 1200 LILI Administration Sodium Chloride 1,000 mls @ 100 mls/hr 02/11/19 13:00 02/12/19 00:38 Normal Saline 0.9% IV 1,000 mls .Q10H LILI Administration Levothyroxine Sodium 150 mcg 02/12/19 06:00 02/12/19 05:08 Synthroid PO Not Given 0600 LILI Pantoprazole Sodium 40 mg 02/11/19 21:00 02/11/19 21:16 Protonix IVP 40 mg Q12HR LILI Administration - Exam General Appearance: NAD, awake alert Eye: PERRL ENT: normocephalic atraumatic, moist mucosa Neck: supple, symmetric, no lymphadenopathy Heart: RRR, no murmur, no gallops, no rubs Respiratory: CTAB, no wheezes, no rales, no ronchi, normal chest expansion Gastrointestinal: soft, non-distended, no palpable masses, no guarding, no rigidity, tender to palpation (deep palpation left lower quadrant) Extremities: no edema Skin: no lesions, no rashes Neurological: cranial nerve grossly intact, no weakness, no focal deficits Musculoskeletal: normal strength Psychiatric: normal behavior, A&O x 3 Hosp A/P (1) Abdominal pain Code(s): R10.9 - UNSPECIFIED ABDOMINAL PAIN Status: Acute (2) GI bleeding Code(s): K92.2 - GASTROINTESTINAL HEMORRHAGE, UNSPECIFIED Status: Acute (3) Anemia Code(s): D64.9 - ANEMIA, UNSPECIFIED Status: Acute (4) Acute diverticulitis Code(s): K57.92 - DVTRCLI OF INTEST, PART UNSP, W/O PERF OR ABSCESS W/O BLEED Status: Acute (5) Diverticulitis Code(s): K57.92 - DVTRCLI OF INTEST, PART UNSP, W/O PERF OR ABSCESS W/O BLEED Status: Acute (6) HTN (hypertension) Code(s): I10 - ESSENTIAL (PRIMARY) HYPERTENSION Status: Chronic Qualifiers: Hypertension type: essential hypertension Qualified Code(s): I10 - Essential (primary) hypertension (7) Hypothyroidism Code(s): E03.9 - HYPOTHYROIDISM, UNSPECIFIED Status: Chronic Qualifiers: Hypothyroidism type: acquired Qualified Code(s): E03.9 - Hypothyroidism, unspecified (8) Obesity (BMI 30-39.9) Code(s): E66.9 - OBESITY, UNSPECIFIED Status: Chronic - Plan Plan: medical/surgical unit gastroenterology consultation, recommendations appreciated G.I. specific antibiotics IV fluids Clear liquid diet, advance as brett per GI PPI therapy hold antiplatelet therapy/and coagulation/NSAIDs in the setting of G.I. bleeding CT scan of the abdomen consistent with acute diverticulitis, without signs of focal perforation or abscess symptomatic therapy for abdominal pain continue home medications as able blood pressure control blood sugar control DVT prophylaxis SCDs
[2019-02-12] MEDS: Pantoprazole 40 MG VIAL IVP SCH ×2 (11:00→20:27)
[2019-02-13] MEDS: Sodium Chloride 0.9% 1,000 ML IV SCH ×2 (04:59→15:53)
[2019-02-13] MEDS: metroNIDAZOLE 500 MG in Premix Bag 1 BAG IVPB SCH ×3 (05:00→21:14)
[2019-02-13] MEDS: Levothyroxine 150 MCG TAB PO SCH (05:02)
[2019-02-13] MEDS: Hydrochlorothiazide 25 MG TAB PO SCH (08:50)
[2019-02-13] MEDS: Pantoprazole 40 MG VIAL IVP SCH ×2 (08:53→21:14)
[2019-02-13 10:08] LABS: #Basophils 0.1 thou/uL (0.0-0.2); #Eosinphils 0.2 thou/uL (0.0-0.7); #Lymphocytes 1.8 thou/uL (1.20-3.40); #Monocytes 0.5 thou/uL (0.11-0.59); #Neutrophils 4.9 thou/uL (1.40-6.50); %Basophils 0.7 % (0.0-1.0); %Eosinophils 2.3 % (0.0-10.0); %Lymphocytes 24.2 % (21.0-51.0); %Monocytes 6.2 % (0.0-10.0); %Neutrophils 66.5 % (42.0-75.0); Hemoglobin 8.2 g/dL (12.0-16.0); Mean Corpuscular HGB CONC 33.5 g/dL (32.0-36.0); Mean Corpuscular Hemoglobin 28.6 pg (27.0-31.0); Mean Corpuscular Volume 85.5 fL (78.0-98.0); Mean Platelet Volume 6.1 fL (7.4-10.4); Platelet Count 294 thou/uL (130-400); RBC Distribution Width 11.3 % (11.5-14.5); Red Blood Cell (RBC) Count 2.87 mill/uL (4.20-5.40); White Blood Cell (WBC) Count 7.3 thou/uL (4.8-10.8)
--- NOTE | 2019-02-13 10:46 | PDOC.HOSPP ---
- Subjective Subjective: Seen and examined. Tolerating diet. Patient has moved her bowels three times since I saw her last, all three have been blood he stool. Patient with headache , has not tried anything to alleviate it, recommended Tylenol or other symptomatic medications as needed. Patient with crampy abdominal pain that has been improving on antibiotics. All questions answered in detail. Patient and family are happy with plan of care. - Objective Vital Signs & Weight: Vital Signs (12 hours) Temp Pulse Resp BP Pulse Ox 02/13/19 08:30 94 L 02/13/19 08:00 98.3 F 77 14 122/77 94 L Weight Admit Weight 239 lb Weight 239 lb 6.56 oz I&O: 02/12/19 02/13/19 02/14/19 06:59 06:59 06:59 Intake Total 2250 3050 Balance 2250 3050 Result Diagrams: 02/13/19 09:42 02/12/19 06:34 Radiology Reviewed by me: Yes Hospitalist ROS - Review of Systems All other systems reviewed; all pertinent +/- noted in HPI/Subj - Medication Medications: Active Medications Generic Name Dose Route Start Last Admin Trade Name Freq PRN Reason Stop Dose Admin Hydrochlorothiazide 25 mg 02/12/19 09:00 02/13/19 08:50 Hydrochlorothiazide PO Not Given DAILY LILI Metronidazole 500 mg/ Device 100 mls @ 100 mls/hr 02/11/19 14:00 02/13/19 05: 00 IVPB 100 mls Q8HR LILI Administration Levofloxacin 750 mg/ Device 150 mls @ 100 mls/hr 02/11/19 12:00 02/12/19 12: 47 IVPB 150 mls 1200 LILI Administration Sodium Chloride 1,000 mls @ 100 mls/hr 02/11/19 13:00 02/13/19 04:59 Normal Saline 0.9% IV Not Given .Q10H LILI Levothyroxine Sodium 150 mcg 02/12/19 06:00 02/13/19 05:02 Synthroid PO 150 mcg 0600 LILI Administration Pantoprazole Sodium 40 mg 02/11/19 21:00 02/13/19 08:53 Protonix IVP 40 mg Q12HR LILI Administration - Exam General Appearance: NAD, awake alert Eye: PERRL ENT: normocephalic atraumatic, moist mucosa Neck: supple, symmetric, no lymphadenopathy Heart: RRR, no murmur, no gallops, no rubs Respiratory: CTAB, no wheezes, no rales, no ronchi, normal chest expansion Gastrointestinal: soft, non-distended, normal bowel sounds, no guarding, no rigidity, tender to palpation (deep palpation in lower left quadrant - mild) Extremities: no edema Skin: no lesions, no rashes Neurological: cranial nerve grossly intact, no weakness Musculoskeletal: normal strength, no muscle wasting Psychiatric: normal affect, A&O x 3 Hosp A/P (1) Abdominal pain Code(s): R10.9 - UNSPECIFIED ABDOMINAL PAIN Status: Acute (2) GI bleeding Code(s): K92.2 - GASTROINTESTINAL HEMORRHAGE, UNSPECIFIED Status: Acute (3) Anemia Code(s): D64.9 - ANEMIA, UNSPECIFIED Status: Acute (4) Acute diverticulitis Code(s): K57.92 - DVTRCLI OF INTEST, PART UNSP, W/O PERF OR ABSCESS W/O BLEED Status: Acute (5) Diverticulitis Code(s): K57.92 - DVTRCLI OF INTEST, PART UNSP, W/O PERF OR ABSCESS W/O BLEED Status: Acute (6) HTN (hypertension) Code(s): I10 - ESSENTIAL (PRIMARY) HYPERTENSION Status: Chronic Qualifiers: Hypertension type: essential hypertension Qualified Code(s): I10 - Essential (primary) hypertension (7) Hypothyroidism Code(s): E03.9 - HYPOTHYROIDISM, UNSPECIFIED Status: Chronic Qualifiers: Hypothyroidism type: acquired Qualified Code(s): E03.9 - Hypothyroidism, unspecified (8) Obesity (BMI 30-39.9) Code(s): E66.9 - OBESITY, UNSPECIFIED Status: Chronic - Plan Plan: medical/surgical unit gastroenterology consultation, recommendations appreciated G.I. specific antibiotics, transition to oral on D/c IV fluids Full liquid diet, advance as brett per GI PPI therapy hold antiplatelet therapy/and coagulation/NSAIDs in the setting of G.I. bleeding CT scan of the abdomen consistent with acute diverticulitis, without signs of focal perforation or abscess symptomatic therapy for abdominal pain continue home medications as able blood pressure control blood sugar control DVT prophylaxis - SCDs
--- NOTE | 2019-02-13 13:15 | PRG ---
DATE OF SERVICE: 02/13/2019 SUBJECTIVE: Ms. Jeff feels better. Her pain is improved. She is having no fever. She did have a little blood that she passed today, but not as much as she had been passing in the past. OBJECTIVE: VITAL SIGNS: Temperature is 98, pulse 77, and blood pressure 122/76. ABDOMEN: Mildly tender in left upper quadrant. LABORATORY DATA: White count 7.3, hemoglobin 8.2, and platelet count 294. ASSESSMENT: Diverticulitis versus ischemic colitis. She has had an episode of diverticulitis last year and had a colonoscopy earlier this year that was okay. PLAN: Advance diet to bland soft. If the patient continues to improve tomorrow, she should go home. Job ID: [id number]
[2019-02-14] MEDS: Sodium Chloride 0.9% 1,000 ML IV SCH (02:03)
[2019-02-14] MEDS: Levothyroxine 150 MCG TAB PO SCH (05:21)
[2019-02-14] MEDS: metroNIDAZOLE 500 MG in Premix Bag 1 BAG IVPB SCH ×2 (05:21→14:04)
[2019-02-14 06:10] LABS: Hemoglobin 7.6 g/dL (12.0-16.0); Platelet Count 277 thou/uL (130-400)
[2019-02-14] MEDS: Hydrochlorothiazide 25 MG TAB PO SCH (08:43)
[2019-02-14] MEDS: Pantoprazole 40 MG VIAL IVP SCH (08:44)
[2019-02-14 16:05] VITALS: BP 125/83; TEMP 98.3
--- NOTE | 2019-02-15 06:32 | DIS ---
DATE OF ADMISSION: 02/11/2019 DATE OF DISCHARGE: 02/14/2019 DISCHARGE DIAGNOSES: 1. Colitis, likely ischemic in nature, cannot rule out diverticulitis. 2. Abdominal pain. 3. Gastrointestinal bleeding. 4. Acute blood loss anemia. 5. Hypertension. 6. Hypothyroidism. 7. Obesity. 8. ZHANG 9. Chronic T8 and T9 compression fractures. HISTORY OF PRESENT ILLNESS: This patient is a 53-year-old female who presented to the hospital through the emergency department with abdominal pain and melena. She had a CT scan of the abdomen which showed a noncomplicated sigmoid and hepatic flexure colon, diverticulitis with some fatty liver and chronic T8 and T9 wedge compression fractures. She was admitted to the hospital and started on IV antibiotics for diverticulitis and she was seen in consultation by Dr. Mobley of the GI service, who felt the patient more likely had an ischemic colitis based on the areas involved in the appearance of the CT scan. The patient was noted to have some anemia associated with the blood loss, but her bleeding appeared to have fully stopped by the time of the admission. She was maintained on treatment for the following couple of days and seen in followup by Dr. Mobley who felt the patient could safely be discharged given that her symptoms had improved and she had no further signs of bleeding. On the day of discharge, her hemoglobin had come down as low as 7.6. She had no bowel movement at all on that particular day. She had orthostatic vital signs which revealed essentially no change with orthostatics, and she felt well and was eager for discharge. With that, she was felt to be stable to do so. PHYSICAL EXAMINATION: VITAL SIGNS: Temperature is 98.3, pulse 85, respirations 16, O2 saturation 98% on room air, BP was 125/83. GENERAL: She was awake and alert. HEART: Regular rate and rhythm without murmurs. LUNGS: Clear. ABDOMEN: Benign. No tenderness. EXTREMITIES: Had no edema. DISPOSITION: The patient is discharged to home. DIET: She is to maintain a regular diet. ACTIVITY: Her activity is as tolerated. DISCHARGE MEDICATIONS: 1. She will be on. a. Cipro 500 mg one p.o. b.i.d. b. Metronidazole 500 mg one p.o. t.i.d. 2. She will continue with. a. Levothyroxine 125 mcg daily. b. Lisinopril 1 p.o. daily. c. Liothyronine 5 mcg daily. FOLLOWUP: She is to follow up with her PCP as well as Dr. Mobley and she can return to the hospital at any time. I did ask the patient to return the day after discharge in order to have her blood counts rechecked. She is to wait for the results in case her hemoglobin is low enough that she may require any type of transfusion intervention. She understands that plan and all of her questions were answered. Time spent in discharge activities was 32 min. Job ID: [id number] MTDD
--- NOTE | 2019-02-15 08:18 | PQF ---
Sapna Jeff Constance PAL WALL [id number] CLINICAL DOCUMENTATION CLARIFICATION FORM: POST DISCHARGE Addendum to original discharge summary date: ____ Late entry note date: __ DATE: 02/15/2019 ATTN:PAL WALL Please exercise your independent, professional judgment in responding to the clarification form. Clinical indicators are provided on the bottom of this form for your review Please check appropriate box(s): [ XX ] Diverticulitis with bleeding [ ] Diverticulitis without bleeding [ ] Other diagnosis [ ] Unable to determine For continuity of documentation, please document condition throughout progress notes and discharge summary. Thank You. CLINICAL INDICATORS - SIGNS / SYMPTOMS / LABS - Colitis, likely ischemic in nature, Cannot rule out diverticulitis- DS, 02/14 , Reynaldo Osman MD - Gastrointestinal bleeding- DS, 02/14, Reynaldo Osman MD - Diverticulitis and GI bleed- Consultation, 02/11, Itz Boyce MD - I suspect this is probably more likely ischemic colitis-Consultation, 02/11, Itz Boyce MD RISK FACTORS - Acute blood loss anemia- DS, 02/14, Reynaldo Osman MD TREATMENT: - GI Consultation, 02/11, Itz Boyce MD - Protonix.IV- MAR, 02/11 - IV.Antibiotics DS, 02/14, Reynaldo Osman MD (This form is maintained as a part of the permanent medical record) 2014 [employer] All Rights Reserved [place] [not provided] [not provided] JOLLYD
== END 2019-02-14 15:46 | disposition home or self-care (01) | DRG 393 ==
LOC: ERS 08:05 → T4-B 12:20
PROVIDERS: ADMIT Internal Medicine; ATTEND Internal Medicine
DX: K55.9 Vascular disorder of intestine, unspecified (principal); K57.33 Diverticulitis of large intestine without perforation or abscess with bleeding; D62 Acute posthemorrhagic anemia; I10 Essential (primary) hypertension; E03.9 Hypothyroidism, unspecified; E66.8 Other obesity; K75.81 Nonalcoholic steatohepatitis (NASH); Z98.51 Tubal ligation status; Z85.850 Personal history of malignant neoplasm of thyroid; Z68.37 Body mass index [BMI] 37.0-37.9, adult
CPT/HCPCS: 36415; 74177; 80048; 80053; 85014; 85018; 85025; 85049; 86850; 86900; 86901; 93005; 96361; 96374; 96375; C9113; J1956; J2405; Q9967

== ENCOUNTER 2021-01-21 09:00 | Emergency (ER) | payer OTHER, SELFPAY ==
[2021-01-21 09:40] LABS: #Basophils 0.1 thou/uL (0.0-0.2); #Eosinphils 0.2 thou/uL (0.0-0.7); #Monocytes 0.6 thou/uL (0.11-0.59); #Neutrophils 6.7 thou/uL (1.40-6.50); %Basophils 0.8 % (0.0-1.0); %Eosinophils 1.7 % (0.0-10.0); %Lymphocytes 20.8 % (21.0-51.0); %Monocytes 5.8 % (0.0-10.0); Hemoglobin 13.7 g/dL (12.0-16.0); Mean Corpuscular HGB CONC 33.3 g/dL (32.0-36.0); Mean Corpuscular Hemoglobin 28.2 pg (27.0-31.0); Mean Corpuscular Volume 84.6 fL (78.0-98.0); Mean Platelet Volume 6.1 fL (7.4-10.4); Platelet Count 286 thou/uL (130-400); RBC Distribution Width 12.7 % (11.5-14.5); Red Blood Cell (RBC) Count 4.85 mill/uL (4.20-5.40); White Blood Cell (WBC) Count 9.5 thou/uL (4.8-10.8)
[2021-01-21 09:59] LABS: ALT (SGPT) 16 U/L (8-55); AST (SGOT) 16 U/L (5-34); Albumin 4.4 g/dL (3.5-5.0); Alkaline Phosphatase 71 U/L (40-110); Anion Gap 15 mmol/L (10-20); BUN (Urea Nitrogen) 9 mg/dL (9.8-20.1); Bilirubin, Total 0.7 mg/dL (0.2-1.2); Calc. Creatinine Clearance 0 mL/min (70-130); Calcium 9.2 mg/dL (7.8-10.44); Carbon Dioxide 24 mmol/L (22-29); Chloride 102 mmol/L (98-107); Globulin 3.5 g/dL (2.4-3.5); Glucose 100 mg/dL (70-105); Potassium 3.9 mmol/L (3.5-5.1); Protein, Total 7.9 g/dL (6.0-8.3); Sodium 137 mmol/L (136-145)
[2021-01-21 11:20] LABS: Troponin I 0.014 ng/mL (< 0.028)
== END 2021-01-21 12:03 | disposition home or self-care (01) ==
LOC: ERS 09:00
DX: R07.9 Chest pain, unspecified (principal); I10 Essential (primary) hypertension; Z79.82 Long term (current) use of aspirin; Z79.899 Other long term (current) drug therapy
CPT/HCPCS: 36415; 71045; 80053; 83880; 84484; 85025; 93005

== ENCOUNTER 2024-03-24 22:34 | Emergency (ER) | payer SELFPAY ==
[2024-03-24 23:05] LABS: #Basophils 0.05 10x3/uL (0.0-0.2); %Basophils 0.4 % (0.0-1.0); %Eosinophils 1.1 % (0.0-10.0); %Lymphocytes 19.7 % (21.0-51.0); %Monocytes 3.7 % (0.0-10.0); %Neutrophils 74.1 % (42.0-75.0); Hematocrit 39.6 % (36.0-47.0); Mean Corpuscular HGB CONC 32.8 g/dL (32.0-36.0); Mean Corpuscular Volume 85.2 fL (78.0-98.0); Mean Platelet Volume 8.2 fL (7.4-10.4); Platelet Count 226 10x3/uL (130-400); RBC Distribution Width 13.4 % (11.5-14.5); Red Blood Cell (RBC) Count 4.65 mill/uL (4.20-5.40)
[2024-03-24] MEDS ORDERED: Ondansetron PF 4 MG/2 ML Vial ONE (23:20)
[2024-03-24] MEDS ORDERED: Morphine 4 MG/ML VIAL ONE (23:20)
[2024-03-24] MEDS ORDERED: Piperacillin/Tazobactam 4.5 GM VIAL ONE (23:36)
[2024-03-24 23:37] LABS: ALT (SGPT) 11 U/L (8-55); AST (SGOT) 12 U/L (5-34); Albumin 3.9 g/dL (3.5-5.0); Alkaline Phosphatase 64 U/L (40-110); Anion Gap 12 mmol/L (10-20); BUN (Urea Nitrogen) 11 mg/dL (9.8-20.1); Bilirubin, Total 0.3 mg/dL (0.2-1.2); Calc. Creatinine Clearance 0 mL/min (70-130); Calcium 9.2 mg/dL (7.8-10.44); Carbon Dioxide 24 mmol/L (22-29); Chloride 104 mmol/L (98-107); Estimated GFR 105; Globulin 3.6 g/dL (2.4-3.5); Glucose 166 mg/dL (70-105); Lipase 15 U/L (8-78); Potassium 3.7 mmol/L (3.5-5.1); Protein, Total 7.5 g/dL (6.0-8.3); Sodium 136 mmol/L (136-145)
[2024-03-24] MEDS ORDERED: Sodium Chloride 0.9% 100 ML ONE (23:37)
[2024-03-24 23:46] LABS: Troponin I Less than 0.010 ng/mL (< 0.028)
[2024-03-24] MEDS ORDERED: Benzocaine 20% Spray 60 ML CAN ONE (23:58)
[2024-03-25 00:48] LABS: Bacteria/HPF None Seen HPF (None Seen); Bilirubin Negative (Negative); Blood, Urine Negative (Negative); CAUTI Indications for Culture Pelvic or flank pain; Clarity Clear (Clear); Glucose, Urine (Dipstick) Normal (Negative); Ketone, Urine Negative (Negative); Leukocyte Negative Leu/uL (Negative); Nitrite Negative (Negative); Protein, Urine (Dipstick) 10 mg/dL (Neg-Trace); Squamous Epithelial 0-3 HPF (0-3); Urobilinogen Normal mg/dL (Less than 2); WBC/HPF 0-3 HPF (0-3); pH, Urine 6.5 (5.0-9.0)
[2024-03-25 00:49] LABS: Specific Gravity, Urine Greater than 1.060 (1.002-1.036)
[2024-03-25 00:50] LABS: Urine Culture Reflex No No
== END 2024-03-25 02:11 | disposition home or self-care (01) ==
LOC: ERS 22:34
DX: K40.30 Unilateral inguinal hernia, with obstruction, without gangrene, not specified as recurrent (principal); I10 Essential (primary) hypertension
CPT/HCPCS: 36415; 43753; 51702; 71045; 74018; 74177; 80053; 81001; 83605; 83690; 84484; 85025; 87040; 93005; 94760; 96361; 96365; 96375; J2272; J2405; J2543